=== PATIENT | female | born 1955 | race African-American/Black ===

== ENCOUNTER 2023-01-04 14:06 | Emergency (ER) | payer OTHER ==
[~2023-01-04] VITALS: Ht 162.6 cm; Wt 74.8 kg
[2023-01-04] MEDS ORDERED: COZAAR100 MG (14:18)
[2023-01-04] MEDS ORDERED: HYDROCHLOROTHIA25 MG (14:18)
[2023-01-04] MEDS ORDERED: SIMVASTATIN5 MG (14:18)
== END 2023-01-04 18:43 | disposition home or self-care (01) ==
LOC: ER 14:06
DX: M54.30 Sciatica, unspecified side (principal)
CPT/HCPCS: 96372; 99284; J1885; J2360